=== PATIENT | female | born 1985 | race Caucasian/White ===

== ENCOUNTER → 2017-12-19 16:13 | Outpatient (CLI) | payer SELFPAY ==
[2017-12-19 15:41] VITALS: BP 114/70; BMI 23.7
[2017-12-19 17:03] LABS: Absolute Lymphocyte Count 1.09 X10^3/ul (0.83-4.51); Absolute Neutrophil Count 4.8 X10^3/uL (2.0-7.7); Basophil# 0.01 X10^3/uL; Basophil% 0.1 % (0-1); Eosinophil# 0.17 X10^3/uL; Eosinophils% 2.5 % (0-5); Hemoglobin 11.5 g/dl (12.0-15.0); Lymphocyte # 1.09 X10^3/ul (4.0); Mean Corp Hgb Conc 32.9 g/gl (32-36); Mean Corpuscular Hgb 30.5 pg (27.0-32.0); Mean Corpuscular Volume 92.8 fL (81-99); Mean Platelet Vol. 10.6 fl (6.2-12.0); Monocyte# 0.73 X10^3/uL; Monocyte% 10.7 % (0-10); Neutrophil # 4.76 X10^3/uL (2.7-7.7); Neutrophil % 70.1 % (47-70); Platelet Count 158 K/mm3 (150-450); RBC Distribution Width CV 12.8 % (11.6-14.6); RBC Distribution Width SD 41.9 fl (35.1-43.9); Red Blood Count 3.77 M/mm3 (4.2-5.4); White Blood Count 6.8 K/mm3 (4.4-11.0)
[2017-12-19 17:10] LABS: POSITIVE COUNT NO; POSITIVE DIFFERENTIAL NO; POSITIVE MORPHOLOGY NO
== END ==
PROVIDERS: Visit Provider Nurse Practitioner Women's Health
DX: Z34.90 Encounter for supervision of normal pregnancy, unspecified, unspecified trimester (principal)
CPT/HCPCS: 85025

== ENCOUNTER → 2018-01-30 17:44 | Outpatient (CLI) | payer SELFPAY ==
[2018-01-30 19:19] LABS: Group B Strep DNA By PCR Negative (Negative); Internal Control PASS; Probe Check PASS; Specimen Processing Control PASS
== END ==
PROVIDERS: Visit Provider Nurse Practitioner Women's Health
DX: Z34.90 Encounter for supervision of normal pregnancy, unspecified, unspecified trimester (principal)
CPT/HCPCS: 87081; 87653

== ENCOUNTER → 2018-03-02 14:46 | Outpatient (CLI) | payer SELFPAY ==
--- NOTE | 2018-03-02 15:08 | US_ITS ---
STUDY: SECOND AND THIRD TRIMESTER OBSTETRICAL ULTRASOUND - LIMITED REASON FOR EXAM: Female, 32 years old. growth. 40 weeks 5 days. LMP: 05/21/2017 PRIOR ULTRASOUND: 10/06/2017 TECHNIQUE: Transabdominal ultrasound evaluation was performed. FINDINGS: There is a single intrauterine fetus. The fetus is in a cephalic presentation. There is demonstrated cardiac activity with a heart rate of 139 bpm. There is a normal amniotic fluid volume. The largest amniotic fluid pocket measures 2.5 x 5.5 cm. The amniotic fluid index (RIVAS) is 8 cm. The placenta is posterior in location and is not low lying. There are Grade 2 placental changes. The cervix is not visualized. BIOMETRY: BPD: 10.3 cm HC: 35.6 cm: 41 weeks, 5 days AC: 37 cm: 41 weeks, 0 days FL: 8.5 cm Age by LMP: 40 weeks, 5 days. REBECCA by LMP: 02/25/2018. REBECCA by prior US: 02/18/2018. age by current US: 41 weeks, 3 days. REBECCA by current US: . Estimated weight: 4515 grams, +/- 659 grams. US/OB Limited With Biometrics IMPRESSION: 1. Single live intrauterine of 41 weeks, 3 day gestation with an REBECCA of 02/20/2018. 2. Posterior grade 2 placenta, not low-lying. 3. Cervix is obscured. 4. Amniotic fluid index 8 cm. 5. Estimated weight 4515 g. Electronically Signed: Radha Nguyen MD at 4:45 EDT , Service support ,
== END ==
PROVIDERS: Visit Provider Obstetrics & Gynecology
DX: Z34.90 Encounter for supervision of normal pregnancy, unspecified, unspecified trimester (principal)
CPT/HCPCS: 76816

== ENCOUNTER 2018-03-06 06:34 | Inpatient (IN) | payer SELFPAY ==
[2018-03-06] MEDS: Lactated Ringers 1,000 ML 50 ML IV (07:25)
[2018-03-06 07:29] VITALS: BMI 26.1
[2018-03-06] MEDS: Oxytocin 30 units/NS 500 ml 30 UNITS/500 ML IV.SOLN IV (07:43)
[2018-03-06 07:57] LABS: Hemoglobin 11.4 g/dl (12.0-15.0); Mean Corp Hgb Conc 33.5 g/gl (32-36); Mean Corpuscular Volume 92.4 fL (81-99); Mean Platelet Vol. 10.8 fl (6.2-12.0); Platelet Count 119 K/mm3 (150-450); RBC Distribution Width CV 13.1 % (11.6-14.6); Red Blood Count 3.68 M/mm3 (4.2-5.4); White Blood Count 5.5 K/mm3 (4.4-11.0)
[2018-03-06 07:58] LABS: Scan Indicated on CBC? Y/N NO
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
[2018-03-06] MEDS: Oxytocin 30 units/NS 500 ml 30 UNITS/500 ML IV.SOLN 334 UNITS IV (16:36)
[2018-03-06] MEDS: Morphine 4 MG/ML Syringe IV (16:56)
[2018-03-06] MEDS: Oxytocin 30 units/NS 500 ml 30 UNITS/500 ML IV.SOLN 167 UNITS IV (17:06)
[2018-03-06 20:57] VITALS: BP 129/78; PULSE 74; RESP 18; TEMP 37.1; O2SAT 96
[2018-03-07 00:47] VITALS: BP 114/66; PULSE 66; RESP 18; TEMP 37.1; O2SAT 99
[2018-03-07 04:35] VITALS: BP 106/62; PULSE 75; RESP 17; TEMP 36.6
--- NOTE | 2018-03-07 05:10 | PCM.OB.VAG ---
- Problem List (1) Post-term Status: Acute (2) Supervision of normal Status: Acute Qualifiers: Comment: PRR REBECCA [birth year] boy JARED Levi Hieu Vaginal Delivery Maternal Presentation: Medically Indicated Induction postdates IOL Method of Induction: Pitocin Amniotic Membrane Rupture Type: Artificial Amniotic Fluid Description: Clear Final REBECCA: 02/25/18 Gestational age: 41 Weeks and 2 Days Date of Procedure: 03/06/18 Pre-Operative Diagnosis: iol postdates Post-Operative Diagnosis: same Surgery/ Procedure Performed: Spontaneous Vaginal Delivery Type of Anesthesia: None Description of Procedure: Patient began pushing and delivered the head in the CATALINO presentation. The head was delivered atraumatically. The anterior and posterior shoulders delivered without complication followed by the rest of the infant and the infant was placed on the maternal abdomen. Delayed cord clamping was employed for approximately 60 seconds. Cord was clamped and cut and gentle traction was applied to the cord and the placenta delivered spontaneously immediately following it was noted to be intact with three-vessel cord. The perineum and vagina were inspected and a very small, hemostatic 1st degree laceration was noted and no repair needed. EBL was 400 cc. Patient and tolerated delivery well. Presentation: CATALINO Placental Delivery Description: Spontaneous Placenta Disposition: [facility] Cord Vessel Description: 3 Vessels Cord Entanglement: None Estimated Blood Loss: 400 Infant A gender: Male Episiotomy Description: None Laceration: Perineal Extension/lac, 1st degree Medications given after delivery: IV Pitocin Complications: None
--- NOTE | 2018-03-07 07:50 | PCM.PN.OB ---
Patient Problems: Active and Suspected Problems (Last Reviewed 03/02/18 @ 14:12 by Criss Mccullough) Post-term (Acute) Subjective: Doing well. Denies SOB, CP, NV. Normal lochia - Physical Exam General: Alert, Oriented x3 Abdomen: Soft, Non Tender, - - FF below U Vital Signs Temp Pulse Resp BP Pulse Ox 97.8 F 75 17 106/62 99 03/07/18 04:35 03/07/18 04:35 03/07/18 04:35 03/07/18 04:35 03/07/18 00:47 Oxygen Delivery Method Room Air Weight: 176 lb 12.972 oz Body Mass Index (BMI) 26.1 Laboratory Tests Past 24 Hrs 03/06/18 03/06/18 07:25 07:25 WBC 5.5 RBC 3.68 L Hgb 11.4 L Hct 34.0 L MCV 92.4 MCH 31.0 MCHC 33.5 RDW 13.1 RDW Differential 44.0 H Plt Count 119 L MPV 10.8 Blood Type O POSITIVE Antibody Screen NEGATIVE Medical Necessity - Tobacco Use Smoking Status: Never smoker Assessment/Plan Active and Suspected Problems (Last Reviewed 03/02/18 @ 14:12 by Criss Mccullough) Post-term (Acute) PPD #1 Doing well. Pain controlled. No concerns bowel, bladder. . Routine care
[2018-03-07 08:05] VITALS: BP 118/68; PULSE 76; RESP 20; TEMP 37
[2018-03-07 13:45] VITALS: BP 113/70; PULSE 90; RESP 18; TEMP 36.5
--- NOTE | 2018-03-07 14:39 | NURSING ---
1300 While rounding Mom states that nursing is going very well. Mom encouraged to call if I can be of assistance with latching or if she would like me to observe latch. Pat MAGDALENO
[2018-03-07 16:05] VITALS: BP 103/61; PULSE 90; RESP 18; TEMP 37.3
[2018-03-07 20:23] VITALS: BP 106/63; PULSE 87; RESP 18; TEMP 36.9
[2018-03-08 01:30] VITALS: BP 117/72; PULSE 79; RESP 16; TEMP 36.9
--- NOTE | 2018-03-08 04:31 | DCINST_ITS ---
Discharge Diet: No Restrictions Discharge Activity: Return to Normal Activity, May not drive while taking narcotic pain medications., May Shower May resume sexual activity in: 4-6 weeks Call your doctor if your incision/area has: Continuous Slow Oozing, Sudden Increased Bleeding, Increased Pain/ Swelling, Increased Redness, Foul Smelling Discharge Additional Instructions: If you experience any of the following, contact your healthcare provider. * Bleeding that soaks a pad every hour for 2 hours * Fever 100.4 or higher * Unrelieved incision or abdominal pain * Swelling, redness, discharge or bleeding from your incision or episiotomy site * Your incision begins to separate * Problems urinating (including inability to urinate or burning while urinating) . * Visual changes * Severe headache * Flu-like symptoms * Pain or redness in one of both of your breasts * Pain, warmth, tenderness or swelling in your legs, especially the calf area * Frequent nausea and vomiting * Symptoms of depression or anxiety If you experience any of the following, call 911 or go to the nearest Emergency Room. * Chest pain * Problems breathing * Seizure activity * Partial or complete paralysis of a body part, slurred speech, weakness or drooping of the face, or a sudden inability to walk or hold your balance Allergies/Adverse Reactions: Allergies No Known Allergies Allergy (Verified 03/06/18 07:30) Medications to take at Discharge cholecalciferol (vitamin D3) 1,000 unit capsule 1,000 unit PO ONCE 10/31/17 ferrous sulfate 324 mg (65 mg iron) tablet,delayed release 324 mg PO QDAY tab 10/31/17 vitamin,calcium,hbdjlnld-dwwc-zbbam acid tablet 1 tab PO QDAY 10/31/17 Naproxen [Naprosyn] 250 - 500 mg PO Q8H PRN PRN #30 tab 03/08/18 The following prescriptions were given: Naproxen [Naprosyn] 250 - 500 mg PO Q8H PRN PRN #30 tab PRN Reason: MILD PAIN Please Follow Up With: Lindsey Berry MD - [phone] When: Call to make an appointment with your doctor in 6 weeks. If you had elevated Blood pressure or 4th degree laceration you will need to be seen in 2 weeks. Primary Care Physician: Care Physician,No Primary [Primary Care Provider] -
--- NOTE | 2018-03-08 04:31 | PCM.DCVAG ---
Discharge Diet: No Restrictions Discharge Activity: Return to Normal Activity, May not drive while taking narcotic pain medications., May Shower May resume sexual activity in: 4-6 weeks Call your doctor if your incision/area has: Continuous Slow Oozing, Sudden Increased Bleeding, Increased Pain/ Swelling, Increased Redness, Foul Smelling Discharge Additional Instructions: If you experience any of the following, contact your healthcare provider. Bleeding that soaks a pad every hour for 2 hours Fever 100.4 or higher Unrelieved incision or abdominal pain Swelling, redness, discharge or bleeding from your incision or episiotomy site Your incision begins to separate Problems urinating (including inability to urinate or burning while urinating). Visual changes Severe headache Flu-like symptoms Pain or redness in one of both of your breasts Pain, warmth, tenderness or swelling in your legs, especially the calf area Frequent nausea and vomiting Symptoms of depression or anxiety If you experience any of the following, call 911 or go to the nearest Emergency Room. Chest pain Problems breathing Seizure activity Partial or complete paralysis of a body part, slurred speech, weakness or drooping of the face, or a sudden inability to walk or hold your balance Allergies/Adverse Reactions: Allergies No Known Allergies Allergy (Verified 03/06/18 07:30) Medications to take at Discharge cholecalciferol (vitamin D3) 1,000 unit capsule 1,000 unit PO ONCE 10/31/17 ferrous sulfate 324 mg (65 mg iron) tablet,delayed release 324 mg PO QDAY tab 10/31/17 vitamin,calcium,izelapyl-zeew-csjek acid tablet 1 tab PO QDAY 10/31/17 Naproxen [Naprosyn] 250 - 500 mg PO Q8H PRN PRN #30 tab 03/08/18 The following prescriptions were given: Naproxen [Naprosyn] 250 - 500 mg PO Q8H PRN PRN #30 tab PRN Reason: MILD PAIN Please Follow Up With: Lindsey Berry MD - [phone] When: Call to make an appointment with your doctor in 6 weeks. If you had elevated Blood pressure or 4th degree laceration you will need to be seen in 2 weeks. Primary Care Physician: Care Physician,No Primary [Primary Care Provider] -
[2018-03-08 08:20] VITALS: BP 113/58; PULSE 80; RESP 20; TEMP 36.6
--- NOTE | 2018-03-08 09:52 | PN.OBGYN_ITS ---
Patient Problems: Active and Suspected Problems (Last Reviewed 03/02/18 @ 14:12 by Criss Mccullough) Post-term (Acute) Subjective: doing well no complaints - Physical Exam General: Alert, Oriented x3 Vital Signs Temp Pulse Resp BP Pulse Ox 97.9 F 80 20 H 113/58 L 99 03/08/18 08:20 03/08/18 08:20 03/08/18 08:20 03/08/18 08:20 03/07/18 00:47 Oxygen Delivery Method Room Air Weight: 176 lb 12.972 oz Body Mass Index (BMI) 26.1 Medical Necessity - Tobacco Use Smoking Status: Never smoker Assessment/Plan Active and Suspected Problems (Last Reviewed 03/02/18 @ 14:12 by Criss Mccullough) Post-term (Acute) s/p routine care [facility]
== END 2018-03-08 12:30 | disposition home or self-care (01) | DRG 775 ==
PROVIDERS: Admitting Provider Obstetrics & Gynecology; Visit Provider Obstetrics & Gynecology
DX: O48.0 Post-term pregnancy (principal); Z37.0 Single live birth; Z3A.41 41 weeks gestation of pregnancy; O70.0 First degree perineal laceration during delivery
CPT/HCPCS: 59025; 59050; 85027; 86850; 86900; 99218; J7120; G0378

== ENCOUNTER 2020-08-31 05:47 | Day surgery (SDC) | payer OTHER, SELFPAY ==
[2020-08-31] VITALS (29 sets, daily range): BP systolic 86–124; BP diastolic 43–79; PULSE 76–115; RESP 16–26; TEMP 36.4–37.3; O2SAT 94–100; BMI 23.7; BMI 21.2
--- NOTE | 2020-08-31 | POC_PTH ---
PATIENT: JOANNA DANIELS [place] [facility] [place][id number] AGE/SX: 35/F ROOM: RE08/31/[address]: Dr. Janice Rossi MD : [id number] BED: DIS: 08/31/2020 SPEC #: [id number] RECD: 08/31/20 13:28 STATUS: JALIL REGabriela #: [id number] ADAM: 08/31/20 00:[address]: Janice Rossi DEPT: SURGICAL PATHOLOGY RECD BY: Darien Nagy ENTERED: 08/31/20 13:28 SP TYPE: PROD CONC OTHR DR: Dr. Lindsey Berry MD No Primary Care Phys Tissues: Product of conception, NOS Procedures: Surgery Specimen Level IV HEADER OPERATION: Suction D & C PRE-OP DIAGNOSIS: Missed TISSUE SUBMITTED: Products of conception MICROSCOPIC DIAGNOSIS Products of conception: [place], gestational endometrium and immature chorionic villi (products of conception). SJ:aniceto 09/01/20 MICROSCOPIC DESCRIPTION Slides are reviewed. GROSS DESCRIPTION Received in fixative is one container labeled with the patient's name and designated products of conception. The specimen consists of multiple irregular fragments of pink-red soft tissue that in aggregate measure 8 x 7 x 2 cm. tissue is not identified. Central Supply Technician Supervisor tissue is submitted in three cassettes. / JENNA:aniceto 08/31/20 TC:5 CPT: 80946
--- NOTE | 2020-08-31 06:02 | EKG12_ITS ---
Test Reason : DYSRHYTHMIA Blood Pressure : / mmHG Vent. Rate : 093 BPM Atrial Rate : 093 BPM P-R Int : 134 ms QRS Dur : 084 ms QT Int : 380 ms P-R-T Axes : 069 -27 009 degrees QTc Int : 472 ms Normal sinus rhythm Leftward axis Low voltage QRS (Limb Leads) Confirmed by JOSE ELIAS FRY, JAUN ([id number]), assistant film editor FELIPE KANG ([id number]) on 09/01/2020 8:22:13 AM Referred By: MICHELLE Confirmed By:JAUN MOCTEZUMA MD
--- NOTE | 2020-08-31 06:02 | ED.VIS.GEN ---
History of Present Illness Chief Complaint: Vag Bld, Preg Informant: Patient Narrative: States she is approximately 12 weeks by dates. She started having mild vaginal spotting with wiping a couple days ago. She had some intermittent spotting a week prior to that that was minor. 8 PM last night she started having significant vaginal bleeding with clots. She has not seen WEATHERSEAL TECHNICIAN yet. Unsure of her blood type. She is unsure if she lost her . This is her fourth . She reports never losing a in the past. Denies any blood thinners. Denies any abdominal pain. She stated she had at least 3 episodes of syncope tonight without any significant injury. This is never happened in the past. No history of preeclampsia. She does take iron for chronic anemia. Past Medical History - Allergies and Home Meds Allergies/Adverse Reactions: Allergies No Known Allergies Allergy (Verified 08/31/20 05:54) Primary Care Physician: Care Physician,No Primary [Primary Care Provider] - Prior records reviewed: Yes Past Medical History: - - Anemia Surgical History: - - Reviewed Lives: With Family Smoking Status: Never smoker Alcohol: None Drugs: None Review of Systems General: Denies: Chills, Fever, Sweats Eyes: Denies: Visual changes - bilaterally, Diplopia ENT: Denies: Rhinorrhea, Sore throat Cardiovascular: Denies: Chest pain, Palpitations Respiratory: Denies: Dyspnea, Cough, Dyspnea on exertion Gastrointestinal: Denies: Abdominal pain, Nausea, Vomiting, Diarrhea, Melena, Hematochezia Genitourinary: Reports: - - See HPI. Denies: Dysuria, Hematuria, Frequency Musculoskeletal: Denies: Back pain, Extremity Pain Skin: Denies: Rash, Wounds Neurological: Reports: Weakness. Denies: Headache, Numbness Physical Exam Vital Signs/Narrative: Vital Signs Temp Pulse Resp BP Pulse Ox 08/31/20 05:48 97.5 F L 115 H 20 H 124/79 H 100 General: Well nourished, Well developed, No Acute Distress Head: Normocephalic, Atraumatic Eyes: Perrl, EOMI ENT: Moist mucous membranes, No rhinorrhea Neck: Supple, Nontender Cardiovascular: Regular rhythm, No murmurs, Tachycardia Respiratory: No distress, CTA bilaterally, Chest nontender Abdomen: Soft, Nontender, Nondistended, Normal bowel sounds : - - Pelvic exam shows brisk bleeding from the cervical os which appears dilated 1 cm. No products of conception seen. Multiple clots. This was evacuated with suction approximately 90 mL of bright red blood. Back: Nontender, Normal Inspection Extremities: Nontender, No edema Skin: No rash, - - Patient appears pale which she stated is chronic for her Neurological: Alert, Oriented x3, Cranial nerves II-XII grossly intact, Normal Strength, Normal Sensation Psychological: Normal affect, Normal Mood Diagnostic/Tx/Re-eval - Medical Decision Making Patient given IV fluids. Lab work obtained. Lab work shows a hemoglobin of 10.5. Coags normal. Urinalysis shows no evidence of infection. EKG shows sinus rhythm at a rate of 93 with no acute ischemia or arrhythmia. Quant hCG greater than 14,000. Blood type pending. Ultrasound will be obtained. Will be signed out to am oncoming physician Dr. Dominguez. There are marking at the knees on page. I suspect the patient is having an impending spontaneous ED Disposition - Plan for ED Patient: Diagnosis: Vaginal bleeding during , Syncope and collapse
[2020-08-31] MEDS: 0.9% Normal Saline 1,000 ML 1000 ML IV (06:08)
[2020-08-31 06:10] LABS: Absolute Lymphocyte Count 1.04 X10^3/uL (0.83-4.51); Absolute Neutrophil Count 8.1 X10^3/uL (2.0-7.7); Basophil# 0.01 X10^3/uL; Basophil% 0.1 % (0-1); Eosinophil# 0.02 X10^3/uL; Eosinophils% 0.2 % (0-5); Hematocrit 32.7 % (37-47); Hemoglobin 10.5 g/dL (12.0-15.0); Lymphocyte # 1.04 X10^3/ul (4.0); Lymphocyte % 10.5 % (19-41); Mean Corp Hgb Conc 32.1 g/dL (32-36); Mean Corpuscular Hgb 29.8 pg (27.0-32.0); Mean Corpuscular Volume 92.9 fL (81-99); Mean Platelet Vol. 10.6 fl (6.2-12.0); Monocyte# 0.65 X10^3/uL; Monocyte% 6.6 % (0-10); NRBC Flagged by Analyzer 0 % (0-5); Neutrophil # 8.14 X10^3/uL (2.7-7.7); Neutrophil % 82.2 % (47-70); Platelet Count 166 K/mm3 (150-450); RBC Distribution Width CV 12.4 % (11.6-14.6); RBC Distribution Width SD 42.5 fl (35.1-43.9); Red Blood Count 3.52 M/mm3 (4.2-5.4); White Blood Count 9.9 K/mm3 (4.4-11.0)
[2020-08-31 06:17] LABS: International Normalized Ratio 1.1; Partial Thromboplast Time 22.1 Seconds (24.1-36.2); Prothrombin Time (Protime)PT. 13.7 SECONDS (11.7-14.9)
[2020-08-31 06:26] LABS: Bedside Glucose 120 mg/dL (70-110)
--- NOTE | 2020-08-31 06:33 | US_ITS ---
STUDY: FIRST TRIMESTER OBSTETRICAL ULTRASOUND REASON FOR EXAM: Female, 35 years old HEAVY BLEEDING AND PASSING CLOTS WITH -- HCG- [id number] -- LMP- 06/05/20 LMP: 06/05/2020 TECHNIQUE: Transvaginal TECHNICAL QUALITY: Adequate. PRIOR ULTRASOUND: None. FINDINGS: There is no demonstrated intrauterine gestational sac. The uterus measures 11.9 x 6.7 cm. Endometrial complex measures 17 mm in the fundus. Hypoechoic collection in the lower uterine segment canal measures 2.9 x 2.8 x 1.9 cm. There is no demonstrated uterine fibroid. The cervix is closed. The right ovary measures 3.7 x 3.6 x 2.1 cm. There is no right ovarian cyst. There is no visualized right adnexal mass or complex lesion. The left ovary measures 2.6 x 2.7 x 1.8 cm. There is no left ovarian cyst. There is no visualized left adnexal mass or complex lesion. There is minimal fluid in the cul de sac. US/Transvaginal w/Preg US IMPRESSION: 1. Endometrial thickening with 2.9 cm lower uterine segment hypoechoic collection suggest blood products and/or failure. Continued sonographic and serologic follow-up recommended. 2. No adnexal masses. 3. Trace pelvic free fluid. Electronically Signed: Marco Young MD ([place]) at 8:03 EDT , Service support ,
[2020-08-31 06:53] LABS: hCG Titer Quant., Serum 14576 mIU/mL (1-3)
[2020-08-31] MEDS: Ondansetron 4 MG/2 ML Vial IV (07:10)
[2020-08-31] MEDS: 0.9% Normal Saline 1,000 ML 999 ML IV (09:12)
--- NOTE | 2020-08-31 09:14 | ED.RN ---
EXTENSION SET AND STOPCOCK ON PRIMARY LINE. PT AWAITING OR AT APPROXIMATELY 1045. DENIES NEEDS AT THIS TIME.
--- NOTE | 2020-08-31 09:21 | EKG12_ITS ---
Test Reason : Blood Pressure : / mmHG Vent. Rate : 083 BPM Atrial Rate : 083 BPM P-R Int : 142 ms QRS Dur : 084 ms QT Int : 416 ms P-R-T Axes : 067 -22 030 degrees QTc Int : 488 ms Normal sinus rhythm Leftward axis Low voltage QRS (Limb Leads) Prolonged QT Abnormal ECG Confirmed by JOSE ELIAS FRY, JAUN ([id number]), digital editor FELIPE KANG ([id number]) on 09/01/2020 8:22:41 AM Referred By: SAUL Confirmed By:JAUN MOCTEZUMA MD
[2020-08-31] MEDS: DiphenhydrAMINE 50 MG/ML Syringe 12.5 MG IV (09:41)
--- NOTE | 2020-08-31 09:43 | HP.PCM_ITS ---
History Date of Admission: 03/06/18 Gestational age: 12 weeks History of this : This is a 35 year-old, G4, P3 presenting to ER with with vaginal bleeding at approximately 12 weeks gestation. Started bleeding heavily last night. Has lost consciousness multiple times since bleeding began. No longer feeling lightheaded. Denies nausea and vomiting. Does report passing large clots and bleeding heavily. Allergies No Known Allergies Allergy (Verified 08/31/20 05:54) Home Medications: Home Medications cholecalciferol (vitamin D3) 25 mcg (1,000 unit) capsule 1,000 unit PO ONCE 10/31/17 ferrous sulfate 324 mg (65 mg iron) tablet,delayed release 324 mg PO QDAY tab 10/31/17 prenat.vits,miriam,[id number]-jxsis 1 tab PO QDAY 10/31/17 Smoking Status: Never smoker Alcohol: None History Past Pregnancies: 3 Elective abortions Hx Para 3 Spontaneous abortions Hx # Term Pregnancies Ectopic pregnancies Hx # Pregnancies Multiple births # of living children 3 Past Pregnancies Del. Date Name GA/Weeks Outcome Route Bth Weight Gen Labor Lgth Anesthesia Del Locatn Provider FOB 07/10/12 Noel 42 live - full term 9 lbs 14 ounces Male [place] 06/04/15 Bhargav 40 live - full term 8lbs 8oz Male [facility] 03/06/18 [facility] 41 live - full term 9 lb 8 oz Male other [facility] Review of Systems Constitutional: Denies: Chills, Fever HEENT: Denies: Head Aches, Sinus Congestion, Sinus Drainage Cardiovascular: Reports: Heaviness, Light Headedness. Denies: Chest Pain, Palpitations Respiratory: Denies: Cough, Shortness of breath at rest, Sputum production Gastrointestinal: Reports: Abdominal Pain. Denies: Nausea, Vomiting Genitourinary: Denies: Dysuria Gynecological: Reports: Vaginal bleeding. Denies: Vaginal discharge, Vaginal itching Musculoskeletal: Denies: Joint Pain, Joint Tenderness Skin: Denies: Rash, Wounds Neurological: Denies: Numbness, Tingling, Focal weakness Psychiatric: Denies: Anxiety, Depression Physical Exam Vitals: Vital Signs Temp Pulse Resp BP Pulse Ox 99.1 F 80 17 101/62 100 08/31/20 09:37 08/31/20 09:37 08/31/20 09:37 08/31/20 09:37 08/31/20 09:37 General: Alert, Oriented x3, Cooperative, No apparent distress, Well developed, Well nourished HEENT: Atraumatic, PERRLA, EOMI, Normocephalic, Lymphadenopathy Cardiovascular: Regular rate Lungs: Normal air movement Abdomen: Bowel Sounds Present, Soft, Non Tender, Non-Distended, Gravid Neurological: Deep Tendon Reflexes 2+/4 and Symmetrical, Neuro grossly intact PORTFOLIO ANALYST: Normal external genitalia - pad partially soaked Assessment/Plan All Active Problems (Last Reviewed 04/24/18 @ 15:56 by Criss Mccullough) Post-term (Acute) Vaginal bleeding during (Acute) Syncope and collapse (Acute) Supervision of normal (Acute) This is a 35 year-old, G3, P3 presenting with heavy vaginal bleeding found to have evidence of incomplete ab 1. Incomplete - Hb 10 on presentation - Patient pale appearing - initially tachycardic in ER, but pulse now in 90s - Bleeding heavily initially, but bleeding now constant slow trickle - US shows evidence of clots in the uterus with no evidence of IUP - Given patient pale and bleeding somewhat heavily, recommendation made to proceed with suction dilation and curettage. Risks, benefits, indications, and alternatives to the procedure were discussed with the patient and she agreed to proceed. OR notified. Multi Select Codes - Visit Charges Office Visit/Consults: 41712 OV L4 Est - patient evaluated in ER and taken to surgery same day
--- NOTE | 2020-08-31 09:43 | PCM.HP.OB ---
History Date of Admission: 03/06/18 Gestational age: 12 weeks History of this : This is a 35 year-old, G4, P3 presenting to ER with with vaginal bleeding at approximately 12 weeks gestation. Started bleeding heavily last night. Has lost consciousness multiple times since bleeding began. No longer feeling lightheaded. Denies nausea and vomiting. Does report passing large clots and bleeding heavily. Allergies No Known Allergies Allergy (Verified 08/31/20 05:54) Home Medications: Home Medications cholecalciferol (vitamin D3) 25 mcg (1,000 unit) capsule 1,000 unit PO ONCE 10/31/17 ferrous sulfate 324 mg (65 mg iron) tablet,delayed release 324 mg PO QDAY tab 10/31/17 prenat.vits,miriam,uqx-fjoz-iqfpz 1 tab PO QDAY 10/31/17 Smoking Status: Never smoker Alcohol: None History Past Pregnancies: Past Pregnancies Delivery Date Name GA/ Weeks Outcome Route Wt Infant Sex Labor Length Anesthesia Delivery Location Provider FOB Physical Exam Vitals: Vital Signs Temp Pulse Resp BP Pulse Ox 99.1 F 80 17 101/62 100 08/31/20 09:37 08/31/20 09:37 08/31/20 09:37 08/31/20 09:37 08/31/20 09:37 Assessment/Plan All Active Problems (Last Reviewed 04/24/18 @ 15:56 by Criss Mccullough) Post-term (Acute) Vaginal bleeding during (Acute) Syncope and collapse (Acute) Supervision of normal (Acute) This is a 35 year-old, G [], P [], at weeks gestational age.
[2020-08-31 10:16] LABS: Hematocrit 21.4 % (37-47); Hemoglobin 7.1 g/dL (12.0-15.0)
--- NOTE | 2020-08-31 11:25 | DCINST_ITS ---
Discharge Diet: No Restrictions Discharge Activity: Return to Normal Activity, May Shower, May Take a Tub Bath - in 2 weeks. May resume sexual activity in: 1-2 weeks Call your doctor if your incision/area has: Foul Smelling Discharge Call your doctor if you observe: Fever of 101 or Higher, Numbness or Tingling, Inability to urinate, Using more than one pad per hour, Shortness of breath, Dizziness, Fainting spells, Chest pain Allergies/Adverse Reactions: Allergies No Known Allergies Allergy (Verified 08/31/20 05:54) Medications to take at Discharge cholecalciferol (vitamin D3) 25 mcg (1,000 unit) capsule 1,000 unit PO ONCE 10/31/17 ferrous sulfate 324 mg (65 mg iron) tablet,delayed release 324 mg PO QDAY tab 10/31/17 prenat.vits,miriam,[id number] 1 tab PO QDAY 10/31/17 Primary Care Physician: Care Physician,No Primary [Primary Care Provider] - Test Results: Test results from this visit will be discussed in further detail at your follow- up appointment, if applicable.
--- NOTE | 2020-08-31 11:26 | OP.PCM_ITS ---
Problem List (1) Incomplete Status: Acute Report of Operation Date of Procedure: 08/31/20 Pre-Operative Diagnosis: Incomplete Post-Operative Diagnosis: Same Surgery/Procedure Performed:: Suction dilation and curettage Description of Surgical Findings:: Normal-appearing cervix. Retained products of conception. Approximately 200 cc of clot in the vagina preoperatively. Type of Anesthesia:: MAC Specimen's removed: Products of conception Estimated Blood Loss (mL): 50 ml Description of Procedure: The patient was taken to the operating room where general anesthesia was obtained without difficulty. She was prepped and draped in the dorsal lithotomy position with yellowfin stirrups. Weighted speculum was placed in the posterior aspect of the vagina and the anterior lip of the cervix was grasped with a ring forcep. The cervix was noted to be dilated to approximately 1 cm preoperatively. A #9 curved suction curette was introduced through the cervix without difficulty. The suction was activated and the products of conception were removed in an outward rotating movement. This was repeated until no products were noted passing through the suction tube. A gentle sharp curettage was then performed. One final pass was made with the suction and no products we re noted. Bleeding at this point was noted to be minimal. All instruments were removed from the vagina. Counts were noted to be correct x2. Patient was taken to the recovery room in stable condition. - Complications None apparent - Admit VTE Documentation VTE Present on Admission: No VTE Mechan Device Prophylaxis: SCD's VTE Pharm Prophylaxis ordered?: No Multi Select Codes - Urinary/Genital Urinary/Genital CPT Codes: 35818 Surg Trtmt missed Ab 1TM
[2020-08-31 12:22] LABS: Absolute Lymphocyte Count 0.64 X10^3/uL (0.83-4.51); Absolute Neutrophil Count 6.8 X10^3/uL (2.0-7.7); Basophil# 0.01 X10^3/uL; Basophil% 0.1 % (0-1); Eosinophil# 0.17 X10^3/uL; Eosinophils% 2.1 % (0-5); Hematocrit 20.9 % (37-47); Hemoglobin 6.7 g/dL (12.0-15.0); Lymphocyte # 0.64 X10^3/ul (4.0); Mean Corp Hgb Conc 32.1 g/dL (32-36); Mean Corpuscular Hgb 29.8 pg (27.0-32.0); Mean Corpuscular Volume 92.9 fL (81-99); Mean Platelet Vol. 10.7 fl (6.2-12.0); Monocyte# 0.38 X10^3/uL; Monocyte% 4.8 % (0-10); NRBC Flagged by Analyzer 0 % (0-5); Neutrophil # 6.76 X10^3/uL (2.7-7.7); Neutrophil % 84.7 % (47-70); POSITIVE MORPHOLOGY YES; Platelet Count 124 K/mm3 (150-450); RBC Distribution Width CV 12.3 % (11.6-14.6); RBC Distribution Width SD 41.7 fl (35.1-43.9); Red Blood Count 2.25 M/mm3 (4.2-5.4)
[2020-08-31 12:28] LABS: Differential Indicated SCAN CRITERIA MET
[2020-08-31 13:23] LABS: Platelet Estimate ADEQUATE (ADEQ); Red Cell Morphology NORM C+C NORMAL (NORM C&C)
== END 2020-08-31 15:44 | disposition home or self-care (01) ==
LOC: ED 08:53 → SDC 09:21 → ACINP 09:22
PROVIDERS: Anesthesiology; Emergency Provider Emergency Medicine; Visit Provider Obstetrics & Gynecology
PROC: (CPT 59812; principal; 2020-08-31 10:30)
DX: O03.4 Incomplete spontaneous abortion without complication (principal); D64.9 Anemia, unspecified
CPT/HCPCS: 01965; 59812; 76817; 82962; 84702; 85014; 85018; 85025; 85610; 85730; 86850; 86900; 86901; 86920; 88305; 93005; 99285; J7030; J7040; J7120; P9016; A4216; J2405

== ENCOUNTER → 2021-08-19 10:03 | Outpatient (CLI) | payer MEDICAID, SELFPAY ==
[2021-08-19 10:27] LABS: Absolute Lymphocyte Count 0.91 X10^3/uL (0.83-4.51); Absolute Neutrophil Count 4.1 X10^3/uL (2.0-7.7); Eosinophil# 0.03 X10^3/uL; Eosinophils% 0.5 % (0-5); Hematocrit 37.8 % (37-47); Hemoglobin 12.4 g/dL (12.0-15.0); Lymphocyte # 0.91 X10^3/ul (0.83-4.51); Mean Corp Hgb Conc 32.8 g/dL (32-36); Mean Corpuscular Hgb 29.9 pg (27.0-32.0); Mean Corpuscular Volume 91.1 fL (81-99); Mean Platelet Vol. 11.3 fl (6.2-12.0); Monocyte# 0.62 X10^3/uL; Monocyte% 10.9 % (0-10); NRBC Flagged by Analyzer 0 % (0-5); Neutrophil # 4.12 X10^3/uL (2.7-7.7); Neutrophil % 72.2 % (47-70); Platelet Count 155 K/mm3 (150-450); RBC Distribution Width CV 12.6 % (11.6-14.6); RBC Distribution Width SD 41.8 fl (35.1-43.9); Red Blood Count 4.15 M/mm3 (4.2-5.4); White Blood Count 5.7 K/mm3 (4.4-11.0)
[2021-08-19 11:35] LABS: HIV - WCH Non-Reactive (Nonreactive); Hepatitis B Surface Antigen Non-Reactive (Nonreactive); Hepatitis C Antibody Non-Reactive (Nonreactive); Rubella IgG Reactive (Nonreactive); Syphilis Antibodies Non-reactive
[2021-08-19 14:10] LABS: Amphetamine Urine VISTA NEGATIVE (<1000 ng/mL); Barbiturate Urine VISTA NEGATIVE (< 200 ng/mL); Benzodiazepine Urine VISTA NEGATIVE (< 200 ng/mL); Cocaine Urine VISTA NEGATIVE (< 300 ng/mL); Ecstacy Urine VISTA NEGATIVE (< 500 ng/mL); Methadone Urine VISTA NEGATIVE (< 300 ng/mL); PCP Urine VISTA NEGATIVE (< 25 ng/mL); THC Urine VISTA NEGATIVE (< 50 ng/mL); Vista UDS pH Range 6
[2021-08-23 22:06] LABS: Chlamydia By Nucleic Acid AMP Negative (Negative)
[2021-08-24 07:57] LABS: Gonococcus By Nucleic Acid AMP Negative (Negative)
== END ==
PROVIDERS: Referring Provider Obstetrics & Gynecology; Visit Provider Obstetrics & Gynecology
DX: Z34.90 Encounter for supervision of normal pregnancy, unspecified, unspecified trimester (principal)
CPT/HCPCS: 36415; 80307; 85025; 86703; 86762; 86780; 86803; 86850; 86900; 86901; 87086; 87340; 87491; 87591

== ENCOUNTER 2021-11-17 13:36 | Outpatient (CLI) | payer MEDICAID, SELFPAY ==
--- NOTE | 2021-11-17 13:52 | US_ITS ---
STUDY: SECOND AND THIRD TRIMESTER OBSTETRICAL ULTRASOUND REASON FOR EXAM: Female, 36 years old well being LMP: 06/11/2021. TECHNIQUE: Transabdominal and Transvaginal TECHNICAL QUALITY: Adequate. PRIOR ULTRASOUND: None. FINDINGS: There is a single intrauterine fetus. The fetus is in a breech presentation. There is demonstrated cardiac activity with a heart rate of 133 bpm. There is a normal amniotic fluid volume. The largest amniotic fluid pocket measures 6.2 cm x 8.7 cm. The amniotic fluid index (RIVAS) is within normal limits. The placenta is posterior in location and is not low lying. There are Grade 0 placental changes. The cervix measures 5.6 cm in length. The adnexal regions are not visualized. BIOMETRY: BPD: 5.25 cm: 21 weeks, 6 days HC: 20.57 cm: 22 weeks, 4 days AC: 18.56 cm: 23 weeks, 2 days FL: 3.88 cm: 22 weeks, 3 days CI: 73.1% FL/BPD: 73.9% FL/HC: FL/AC: 20.9% HC/AC: 1.1 age by current US: 22 weeks, 2 days. REBECCA by current US: 03/21/2022. Estimated weight: 542 grams, +/- 81 grams, 50 %. Age by LMP: 22 weeks, 5 days. REBECCA by LMP: 03/18/2022. ANATOMY: Gender: Male Cranium: Normal lateral ventricles. Normal choroid plexus. Normal cerebellum. Normal cisterna magna. Normal face, nose and lips. Chest: Normal 4-chamber heart. Abdomen/Pelvis: Normal diaphragm. Normal stomach. Normal abdominal wall. Normal cord insertion. Normal 3 vessel cord. Normal kidneys. Normal bladder. Spine: Normal cervical spine. Normal thoracic spine. Normal lumbar spine. Normal sacrum. Extremities: Normal bilateral upper extremities. Normal bilateral lower extremities. IMPRESSION: Single live intrauterine gestation with a mean gestational age of 22 weeks and 2 days. Electronically Signed: Jean-Claude Dixon MD at 9:11 EST , STUDY: FIRST TRIMESTER OBSTETRICAL ULTRASOUND REASON FOR EXAM: Female, 36 years old. Cervical length measurement. LMP: 06/11/2021 TECHNIQUE: Transvaginal TECHNICAL QUALITY: Adequate. PRIOR ULTRASOUND: None. FINDINGS: The cervical length measures 5.6 cm. US/Transvaginal w/Preg US IMPRESSION: Cervical length measures 5.6 cm. Electronically Signed: Jean-Claude Dixon MD at 9:15 EST ,
--- NOTE | 2021-11-17 13:52 | US_ITS ---
STUDY: SECOND AND THIRD TRIMESTER OBSTETRICAL ULTRASOUND REASON FOR EXAM: Female, 36 years old well being LMP: 06/11/2021. TECHNIQUE: Transabdominal and Transvaginal TECHNICAL QUALITY: Adequate. PRIOR ULTRASOUND: None. FINDINGS: There is a single intrauterine fetus. The fetus is in a breech presentation. There is demonstrated cardiac activity with a heart rate of 133 bpm. There is a normal amniotic fluid volume. The largest amniotic fluid pocket measures 6.2 cm x 8.7 cm. The amniotic fluid index (RIVAS) is within normal limits. The placenta is posterior in location and is not low lying. There are Grade 0 placental changes. The cervix measures 5.6 cm in length. The adnexal regions are not visualized. BIOMETRY: BPD: 5.25 cm: 21 weeks, 6 days HC: 20.57 cm: 22 weeks, 4 days AC: 18.56 cm: 23 weeks, 2 days FL: 3.88 cm: 22 weeks, 3 days CI: 73.1% FL/BPD: 73.9% FL/HC: FL/AC: 20.9% HC/AC: 1.1 age by current US: 22 weeks, 2 days. REBECCA by current US: 03/21/2022. Estimated weight: 542 grams, +/- 81 grams, 50 %. Age by LMP: 22 weeks, 5 days. REBECCA by LMP: 03/18/2022. ANATOMY: Gender: Male Cranium: Normal lateral ventricles. Normal choroid plexus. Normal cerebellum. Normal cisterna magna. Normal face, nose and lips. Chest: Normal 4-chamber heart. Abdomen/Pelvis: Normal diaphragm. Normal stomach. Normal abdominal wall. Normal cord insertion. Normal 3 vessel cord. Normal kidneys. Normal bladder. Spine: Normal cervical spine. Normal thoracic spine. Normal lumbar spine. Normal sacrum. Extremities: Normal bilateral upper extremities. Normal bilateral lower extremities. IMPRESSION: Single live intrauterine gestation with a mean gestational age of 22 weeks and 2 days. Electronically Signed: Jean-Claude Dixon MD at 9:11 EST , STUDY: FIRST TRIMESTER OBSTETRICAL ULTRASOUND REASON FOR EXAM: Female, 36 years old. Cervical length measurement. LMP: 06/11/2021 TECHNIQUE: Transvaginal TECHNICAL QUALITY: Adequate. PRIOR ULTRASOUND: None. FINDINGS: The cervical length measures 5.6 cm. US/OB Anatomy Scan IMPRESSION: Cervical length measures 5.6 cm. Electronically Signed: Jean-Claude Dixon MD at 9:15 EST ,
== END 2021-11-17 23:59 | disposition short-term general hospital (02) ==
LOC: US 13:37
PROVIDERS: Referring Provider Obstetrics & Gynecology; Visit Provider Obstetrics & Gynecology
DX: Z34.80 Encounter for supervision of other normal pregnancy, unspecified trimester (principal)
CPT/HCPCS: 76805; 76817

== ENCOUNTER 2021-12-24 10:20 | Outpatient (CLI) | payer MEDICAID, SELFPAY ==
[2021-12-24 10:40] LABS: Absolute Lymphocyte Count 0.77 X10^3/uL (0.83-4.51); Absolute Neutrophil Count 4.1 X10^3/uL (2.0-7.7); Basophil# 0.01 X10^3/uL; Basophil% 0.2 % (0-1); Eosinophil# 0.08 X10^3/uL; Eosinophils% 1.5 % (0-5); Hematocrit 32.5 % (37-47); Hemoglobin 11.1 g/dL (12.0-15.0); Lymphocyte # 0.77 X10^3/ul (0.83-4.51); Lymphocyte % 14.2 % (19-41); Mean Corp Hgb Conc 34.2 g/dL (32-36); Mean Corpuscular Hgb 31.9 pg (27.0-32.0); Mean Corpuscular Volume 93.4 fL (81-99); Mean Platelet Vol. 10.2 fl (6.2-12.0); Monocyte# 0.48 X10^3/uL; Monocyte% 8.8 % (0-10); NRBC Flagged by Analyzer 0 % (0-5); Neutrophil # 4.05 X10^3/uL (2.7-7.7); Neutrophil % 74.4 % (47-70); Platelet Count 144 K/mm3 (150-450); RBC Distribution Width CV 12.9 % (11.6-14.6); Red Blood Count 3.48 M/mm3 (4.2-5.4); White Blood Count 5.4 K/mm3 (4.4-11.0)
[2021-12-24 11:16] LABS: Glucose Challenge Gest 1H 50g 132 mg/dL (70-140)
== END 2021-12-24 23:59 | disposition home or self-care (01) ==
LOC: PAVLAB 10:21
PROVIDERS: Obstetrics & Gynecology; Referring Provider Obstetrics & Gynecology; Visit Provider Obstetrics & Gynecology
DX: Z34.80 Encounter for supervision of other normal pregnancy, unspecified trimester (principal)
CPT/HCPCS: 36415; 82950; 85025

== ENCOUNTER 2022-01-21 11:15 | Outpatient (CLI) | payer MEDICAID, SELFPAY ==
[2022-01-21 11:25] LABS: Absolute Lymphocyte Count 1.02 X10^3/uL (0.83-4.51); Absolute Neutrophil Count 5.2 X10^3/uL (2.0-7.7); Basophil# 0.02 X10^3/uL; Basophil% 0.3 % (0-1); Eosinophil# 0.07 X10^3/uL; Hematocrit 35.5 % (37-47); Lymphocyte # 1.02 X10^3/ul (0.83-4.51); Lymphocyte % 14.2 % (19-41); Mean Corp Hgb Conc 33.8 g/dL (32-36); Mean Corpuscular Hgb 31.3 pg (27.0-32.0); Mean Corpuscular Volume 92.7 fL (81-99); Mean Platelet Vol. 9.7 fl (6.2-12.0); Monocyte# 0.77 X10^3/uL; Monocyte% 10.8 % (0-10); NRBC Flagged by Analyzer 0 % (0-5); Neutrophil # 5.19 X10^3/uL (2.7-7.7); Neutrophil % 72.4 % (47-70); Platelet Count 159 K/mm3 (150-450); RBC Distribution Width CV 12.9 % (11.6-14.6); RBC Distribution Width SD 43.5 fl (35.1-43.9); Red Blood Count 3.83 M/mm3 (4.2-5.4); White Blood Count 7.2 K/mm3 (4.4-11.0)
== END 2022-01-21 23:59 | disposition home or self-care (01) ==
LOC: PAVLAB 11:16
PROVIDERS: Referring Provider Obstetrics & Gynecology; Visit Provider Obstetrics & Gynecology
DX: O99.119 Other diseases of the blood and blood-forming organs and certain disorders involving the immune mechanism complicating pregnancy, unspecified trimester (principal); D69.6 Thrombocytopenia, unspecified; Z3A.00 Weeks of gestation of pregnancy not specified
CPT/HCPCS: 36415; 85025

== ENCOUNTER 2022-02-18 16:53 | Outpatient (CLI) | payer MEDICAID, SELFPAY | END 2022-02-18 23:59 | disposition home or self-care (01) | PROVIDERS: Visit Provider Obstetrics & Gynecology | DX: Z34.80 Encounter for supervision of other normal pregnancy, unspecified trimester (principal) | CPT/HCPCS: 87081 ==

== ENCOUNTER 2022-02-25 15:38 | Outpatient (CLI) | payer MEDICAID, SELFPAY ==
[2022-02-25 15:53] LABS: Absolute Lymphocyte Count 0.75 X10^3/uL (0.83-4.51); Absolute Neutrophil Count 4.1 X10^3/uL (2.0-7.7); Basophil# 0.01 X10^3/uL; Basophil% 0.2 % (0-1); Eosinophil# 0.08 X10^3/uL; Eosinophils% 1.4 % (0-5); Hematocrit 34.2 % (37-47); Hemoglobin 11.6 g/dL (12.0-15.0); Lymphocyte # 0.75 X10^3/ul (0.83-4.51); Lymphocyte % 13.5 % (19-41); Mean Corp Hgb Conc 33.9 g/dL (32-36); Mean Corpuscular Hgb 31.4 pg (27.0-32.0); Mean Corpuscular Volume 92.7 fL (81-99); Monocyte% 10.8 % (0-10); NRBC Flagged by Analyzer 0 % (0-5); Neutrophil # 4.07 X10^3/uL (2.7-7.7); Neutrophil % 73.4 % (47-70); Platelet Count 124 K/mm3 (150-450); RBC Distribution Width CV 12.9 % (11.6-14.6); RBC Distribution Width SD 43.8 fl (35.1-43.9); Red Blood Count 3.69 M/mm3 (4.2-5.4); White Blood Count 5.6 K/mm3 (4.4-11.0)
== END 2022-02-25 23:59 | disposition home or self-care (01) ==
LOC: LAB 15:39
PROVIDERS: Visit Provider Obstetrics & Gynecology
DX: O99.119 Other diseases of the blood and blood-forming organs and certain disorders involving the immune mechanism complicating pregnancy, unspecified trimester (principal); D69.6 Thrombocytopenia, unspecified; Z3A.00 Weeks of gestation of pregnancy not specified
CPT/HCPCS: 36415; 85025

== ENCOUNTER 2022-03-26 09:50 | Inpatient (IN) | payer MEDICAID, SELFPAY ==
[2022-03-26] VITALS (26 sets, daily range): BP systolic 112–141; BP diastolic 63–87; PULSE 64–82; TEMP 35.9–36.9; O2SAT 95–98; BMI 26.8
--- NOTE | 2022-03-26 10:06 | HP.PCM.OB_ITS ---
HPI - General General Date of Admission: 03/26/22 HPI Narrative JOANNA DANIELS, is a 36 F who presents for IOL postdates no vb lof admits good fm no regular ctx Maternal Data Information REBECCA Calculator Estimated Delivery Date Method Current WG Current Estimate 03/18/22 LMP (Certain) 41w 1d PFSH PFS Medical History (Updated 03/26/22 @ 10:[address] Lindsey Berry MD) Missed Home Medications ferrous sulfate 324 mg (65 mg iron) tablet,delayed release 324 mg PO QDAY tab 10/31/17 [History Last Taken 03/05/18] prenat.vits,miriam,[id number]-[id number]-[id number] 1 tab PO QDAY 10/31/17 [History Last Taken 03/06/18] Allergy/AdvReac Type Severity Reaction Status Date / Time No Known Allergies Allergy Verified 03/18/22 10:59 Surgical History H/O dilation and curettage Social History Smoking Status: Never smoker alcohol intake: never substance use type: does not use caffeine: No what type of physical activity do you participate in: none seatbelt use: always do you feel safe at home: Yes additional social history: Hieu History 5 Elective abortions Hx Para 3 Spontaneous abortions 1 Hx # Term Pregnancies Ectopic pregnancies Hx # Pregnancies Multiple births # of living children 3 Past Pregnancies Del. Date Name GA/Weeks Outcome Route Bth Weight Infant Gen Labor Lgth Anesthesia Del Locatn Provider FOB 07/10/12 Noel 42 live - full term 9 lbs 14 ounces Male [place] 06/04/15 Bhargav 40 live - full term 8lbs 8oz Male [facility] 03/06/18 Pacheco 41 live - full term 9 lb 8 oz Male ot her [facility] Visit Details Expected Delivery Route/Plan Labor Preferences- CB/BF classes: [] labor support person: [] labor intervention preferences: [] pain management options preferred: [] cut cord/dad catch: [] : [] PP control planned: [] discussed possible routes of delivery and associated risks: [] special requests: [] Plans Covid status: prior to . counseled regarding risk of covid in vs vaccination and declined vaccination Flu vaccine: declined Tdap vaccine: declined Rhogam: [] LARC form signed: [] movement and labor precautions reviewed. Problem list reviewed and updated with the most current plan of care details and appropriate orders placed. Relevant counseling for the gestational age provided. Continue routine care and follow up unless otherwise noted in visit notes/problem list details OB Flowsheet Initial Weight: 148 lb Date -?-?-?-?-?-?-?-?-?-?-?-?- EGA Weight BP Urine Prot -?-?-?-?-?-?-?-?-?-?-?-?- Glucose FHR FuHt Pres Dilation -?-?-?-?-?-?-?-?-?-?-?-?- Effaced St Visit Note 08/19/21 -?-?-?-?-?-?-?-?-?-?-?-?- 9w 6d 148 lb (+0 oz) 100/80 -?-?-?-?-?-?-?-?-?-?-?-?- 170 -?-?-?-?-?-?-?-?-?-?-?-?- SM- CRL 2.9 cm c ons with LMP 09/13/21 -?-?-?-?-?-?-?-?-?-?-?-?- 13w 3d 153 lb (+5 lb) 122/80 Negative -?-?-?-?-?-?-?-?-?-?-?-?- Negative 150 -?-?-?-?-?-?-?-?-?-?-?-?- SM- no vb lof cr amping 10/15/21 -?-?-?-?-?-?-?-?-?-?-?-?- 18w 0d 155 lb 2 oz (+7 lb 2 oz) 112/64 Negative -?-?-?-?-?-?-?-?-?-?-?-?- Negative -?-?-?-?-?-?-?-?-?-?-?-?- SM- no vb lof go od fm no regular ctx 11/08/21 -?-?-?-?-?-?-?-?-?-?-?-?- 21w 3d 161 lb (+13 lb) 120/60 Negative -?-?-?-?-?-?-?-?-?-?-?-?- Negative 145 -?-?-?-?-?-?-?-?-?-?-?-?- Sm- no vb lof go od fm nor egular ctx 12/10/21 -?-?-?-?-?-?-?-?-?-?-?-?- 26w 0d 165 lb (+17 lb) 124/82 Negative -?-?-?-?-?-?-?-?-?-?-?-?- Negative 145 -?-?-?-?-?-?-?-?-?-?-?-?- SM- no vb lof go od fm nor egular ctx 12/24/21 -?-?--?-?-?-?-?-?-?-?-?-?- 28w 0d 169 lb (+21 lb) 118/72 Negative -?-?-?-?-?-?-?-?-?-?-?-?- Negative 147 -?-?-?-?-?-?-?-?-?-?-?-?- JV- no lof vag b leeding or dec fm. mildly low plts. rpt monthly. gct normal. 01/07/22 -?-?-?-?-?-?-?-?-?-?-?-?- 30w 0d 168 lb (+20 lb) 100/60 Negative -?-?-?-?-?-?-?-?-?-?-?-?- Negative 140 -?-?-?-?-?-?-?-?-?-?-?-?- Sm- no vb lof go od fm no rgular ctx 01/21/22 -?-?-?-?-?-?-?-?-?-?--?-?- 32w 0d 172 lb (+24 lb) 130/80 Negative -?-?-?-?-?-?-?-?-?-?-?-?- Negative 145 34 -?-?-?-?-?-?-?-?-?-?-?-?- JV- plan to repe at plts today. pt is not planning on epidural. no loss of fluid, vaginal bleeding, or dec fm. 02/18/22 -?-?-?-?-?-?-?-?-?-?-?-?- 36w 0d 176 lb 2 oz (+28 lb 2 oz) 122/82 Negative -?-?-?-?-?-?-?-?-?-?-?-?- Negative 135 36 1 -?-?-?-?-?-?-?-?-?-?-?-?- 30 -3 JV- no lof , vaginal bleeding, or dec fm. Gbs today. rpt plts next visit. 02/25/22 -?-?-?-?-?-?-?-?-?-?-?-?- 37w 0d 178 lb (+30 lb) 130/80 Negative -?-?-?-?-?-?-?-?-?-?-?--?- Negative 130 37 -?-?-?-?-?-?-?-?-?-?-?-?- SM- no vb lof go od fm no reuglar ctx 03/03/22 -?-?-?-?-?-?-?-?-?-?-?-?- 37w 6d 181 lb (+33 lb) 130/82 Negative -?-?-?-?-?-?-?-?-?-?-?-?- Negative 140 38 1 -?-?-?-?-?-?-?-?-?-?-?-?- 30 -3 SM- no vb lof good fm no regular ctx 03/11/22 -?-?-?-?-?-?-?-?-?-?-?-?- 39w 0d 182 lb (+34 lb) 112/70 Negative -?-?-?-?-?-?-?-?-?-?-?-?- Negative 140 39 1 -?-?-?-?-?-?-?-?-?-?-?-?- 30 -2 SM- no vb lof good fm no regular ctx 03/18/22 -?-?-?-?-?-?-?-?-?-?-?-?- 40w 0d 183 lb (+35 lb) 128/82 Negative -?-?-?-?-?-?-?-?-?-?-?-?- Negative 143 38 2 -?-?-?-?-?-?-?-?-?-?-?-?- 50 -2 JV- IOL se t up for next monday per patient request. no lof, vaginal bleeding, or dec fm. 03/26/22 -?-?-?-?-?-?-?-?-?-?-?-?- 41w 1d 134/76 -?-?-?-?-?-?-?-?-?-?-?-?- -?-?-?-?-?-?-?-?-?-?-?-?- NST FHR Rate Baby A Baseline: 130 Variability:: Moderate Accelerations:: 15 x 15 Decelerations:: None NST Reactive:: Yes FHR Category:: Category I Uterine Activity:: irregular ROS Constitutional Constitutional: Reports systems reviewed and no addt'l complaints, except as documented Eyes Eyes: Denies change in vision ENT HEENT: Reports systems reviewed and no addt'l complaints, except as documented; Denies headache(s) Cardiovascular Cardiovascular: Reports systems reviewed and no addt'l complaints, except as documented; Denies chest pain or dyspnea Respiratory/Chest Respiratory/Chest: Reports systems reviewed and no addt'l complaints, except as documented Gastrointestinal Gastrointestinal: Reports systems reviewed and no addt'l complaints, except as documented; Denies abdominal pain Genitourinary Genitourinary: Reports systems reviewed and no addt'l complaints, except as documented, contractions Details: present (irregular) and movement Details: present; Denies dysuria or genital lesions Musculoskeletal Musculoskeletal: Reports systems reviewed and no addt'l complaints, except as documented Neurologic Neurologic: Reports systems reviewed and no addt'l complaints, except as documented Endocrine Endocrinology: Reports systems reviewed and no addt'l complaints, except as documented Vital Signs Vital Signs Vital Signs: 03/26/22 09:56 03/26/22 09:58 Pulse Rate 82 79 Blood Pressure 134/76 H BP Systolic 134 BP Diastolic 76 Pulse Ox 97 Physical Exam Const alert, oriented x3, no apparent distress and healthy appearing HEENT normocephalic and moist oral mucous membranes Head and Scalp: atraumatic Neck full ROM, no lymphadenopathy, supple and thyroid normal General: trachea midline Lymph Lymphatic: no lymphadenopathy noted Chest inspection of chest normal Resp normal respiratory effort Cardio regular rate GI normal to inspection, nondistended, normoactive bowel sounds, soft to palpation and non-tender Inspection: gravid external exam normal Manual OB Exam: estimated gestational size appropriate, presentation cephalic, dilated 3, effaced 60 and station -2 Extremity normal to inspection General Extremity: Negative for edema Skin no rashes or lesions noted Neuro no focal motor deficits and deep tendon reflexes 2+ bilaterally Motor Exam: strength 5/5 throughout and clonus absent Psych mental status grossly normal Labs Labs Labs: Blood Type O POSITIVE Antibody Screen NEGATIVE Hct 34.2 % (37-47) L Hgb 11.6 g/dL (12.0-15.0) L Obstetrics US Syphilis Total Ab Non-reactive Rubella IgG Antibody Reactive (Nonreactive) Hep Bs Antigen Non-Reactive (Nonreactive) Chlamydia DNA ([facility]) Negative (Negative) Neisseria gonorrhoeae DNA ([facility]) Negative (Negative) HIV 1&2 Antibody Non-Reactive (Nonreactive) Glucose 1 Hr 50 gm 132 mg/dL (70-140) Group B Strep DNA Negative (Negative) Rhogam given: No Assessment & Plan (1) Supervision of other normal : COMMENT: PRR REBECCA: 03/18/22, boy, PC: Bhagrav Cohen Levi Spouse: Hieu (2) 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 (3) Gestational thrombocytopenia: COMMENT: stable (4) : QUALIFIERS: Weeks of gestation: 40 weeks Qualified Code(s): Z3A.40 - 40 weeks gestation of COMMENT: nl anatomy, declines genetic, carrier and NTD. GBS negative. (5) Encounter for induction of labor: COMMENT: IOL postdates Pitocin PLAN: Patient presents IOL, plan management for with pitocin/AROM. Pain management: minimal intervention planned. GBS negative. Management of any complications: none I have reviewed the [facility] and made any clinically relevant updates.
[2022-03-26] MEDS: Lactated Ringers 1,000 ML 50 ML IV (10:30)
[2022-03-26 11:06] LABS: Absolute Lymphocyte Count 0.73 X10^3/uL (0.83-4.51); Absolute Neutrophil Count 2.7 X10^3/uL (2.0-7.7); Basophil# 0.01 X10^3/uL; Basophil% 0.2 % (0-1); Eosinophils% 2.4 % (0-5); Hematocrit 33.2 % (37-47); Lymphocyte # 0.73 X10^3/ul (0.83-4.51); Lymphocyte % 17.3 % (19-41); Mean Corp Hgb Conc 33.1 g/dL (32-36); Mean Corpuscular Hgb 31.1 pg (27.0-32.0); Mean Corpuscular Volume 93.8 fL (81-99); Mean Platelet Vol. 11.7 fl (6.2-12.0); Monocyte# 0.63 X10^3/uL; Monocyte% 14.9 % (0-10); NRBC Flagged by Analyzer 0 % (0-5); Neutrophil # 2.74 X10^3/uL (2.7-7.7); Neutrophil % 64.7 % (47-70); Platelet Count 107 K/mm3 (150-450); RBC Distribution Width CV 12.8 % (11.6-14.6); RBC Distribution Width SD 44.1 fl (35.1-43.9); Red Blood Count 3.54 M/mm3 (4.2-5.4); White Blood Count 4.2 K/mm3 (4.4-11.0)
[2022-03-26] MEDS: Oxytocin 30 units/NS 500 ml 30 UNITS/500 ML IV.SOLN IV (11:36)
[2022-03-26] MEDS: Oxytocin 30 units/NS 500 ml 30 UNITS/500 ML IV.SOLN 334 UNITS IV (20:04)
--- NOTE | 2022-03-26 20:17 | OP.PCM_ITS ---
Assessment & Plan (1) : QUALIFIERS: Weeks of gestation: 40 weeks Qualified Code(s): Z3A.40 - 40 weeks gestation of COMMENT: nl anatomy, declines genetic, carrier and NTD. GBS negative. 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 (5) Encounter for induction of labor: COMMENT: IOL postdates Pitocin (6) Vaginal delivery: COMMENT: IOL 41 SM boy Roberto Maternal Data Information REBECCA Calculator Estimated Delivery Date Method Current WG Current Estimate 03/18/22 LMP (Certain) 41w 2d Vaginal Delivery Operative Information Date of Procedure: 03/26/22 Pre-Operative Diagnosis: IOL postdates Post-Operative Diagnosis: same Surgery / Procedure Performed: Spontaneous Vaginal Delivery Type of Anesthesia: Local with 1% Lidocaine Special Medications: none Estimated Blood Loss: 200 Fluids Replaced: crystalloid Findings Description of Procedure: Patient began pushing and delivered the head in the LINDA presentation. The head was delivered atraumatically . The anterior and posterior shoulders delivered without complication followed by the rest of the and the was placed on the maternal abdomen. Delayed cord clamping was employed for approximately 60 seconds. Cord was clamped and cut and gentle traction was applied to the cord and the placenta delivered spontaneously immediately following it was noted to be intact with three-vessel cord. The perineum and vagina were inspected and noted to have a first degree perineal laceration repaired in the usual fashion wit 3-0 rapide. EBL was 200. Patient and tolerated delivery well. Presentation: LINDA Amniotic Membrane Rupture Type: Artificial Amniotic Fluid Description: Clear Placental Delivery Description: Spontaneous Placenta Disposition: [facility] Cord Vessel Description: 3 Vessels Cord Entanglement: True Knot(s) Delayed Cord Clamping: Yes Post Vaginal Delivery Medications Given After Delivery: IV Pitocin Episiotomy Description: None Laceration: Perineal Extension/lac and 1st degree Complication Complications: None Procedures Urinary/Genital [id number]: [id number] Vaginal Delivery+PP Care([facility])
[2022-03-27 00:04] VITALS: BP 111/54; PULSE 81; RESP 15; TEMP 36.3
[2022-03-27 04:22] VITALS: BP 107/69; PULSE 71; RESP 16; TEMP 36.6
[2022-03-27 08:45] VITALS: BP 112/73; PULSE 75; RESP 16; TEMP 36.6; O2SAT 96
--- NOTE | 2022-03-27 13:16 | PCM.DC ---
Discharge Instructions Diet Discharge Diet: No restrictions Activity Discharge Activity: Return to Normal Activity, May Not Drive (while taking narcotic pain medications.) and May Shower May resume sexual activity in: 4-6 weeks Dressing / Incision Call your doctor if your incision/area has: Continuous Slow Oozing, Sudden Increased Bleeding, Increased Pain/ Swelling, Increased Redness and Foul Smelling Discharge Follow Up Care Please Follow Up With: Lindsey Berry MD When: Call [phone] to make an appointment with your doctor in 6 weeks. If you had elevated blood pressure or 4th degree laceration, you will need to be seen in 2 weeks. Test Results: Test results from this visit will be discussed in further detail at your follow-up appointment, if applicable. Discharge Plan Admission Admit Date/Time: 03/26/22 09:50 Attending Provider: Lindsey Berry Primary Care Provider: Care Physician,Anitra Primary Discharge Orders/Prescriptions Prescriptions: No Action prenat.vits,miriam,dnv-hyif-hjsha [ Vitamin] tablet 1 tab PO QDAY RF: 0 ferrous sulfate 324 mg (65 mg iron) tablet,delayed release (DR/EC) 324 mg PO QDAY RF: 0 Referrals / Follow Up: Care Physician,No Primary [Primary Care Provider] - Disposition Disposition (needs filled in before D/C Order can be placed): Home, Self Care
--- NOTE | 2022-03-27 13:17 | PCM.PN.OB ---
Subjective Subjective Patient doing well without complaints. Tolerating PO. Ambulating and voiding without difficulty. feeding well. Denies chest pain, shortness of breath, calf pain/swelling, fevers, chills, lightheadedness. Objective Data Objective Data Vital Signs: Vital Signs Temp Pulse Resp BP Pulse Ox 97.9 F 75 16 112/73 96 03/27/22 08:45 03/27/22 08:45 03/27/22 08:45 03/27/22 08:45 03/27/22 08:45 Oxygen Delivery Method Room Air Weight: 181 lb 6.4 oz Body Mass Index (BMI) 26.8 Intake & Output: Intake and Output for Last 24 Hours 03/25/22 03/26/22 03/27/22 23:59 23:59 23:59 Intake Total 1270.04 / 1270.04 Output Total 400 / 400 Balance 870.04 / 870.04 Lab / Micro Data Result Diagrams: 03/26/22 10:30 Micro: Microbiology 03/26/22 10:20 Nasal Secretion SARS-CoV-2 Antigen (Rapid) - Final ROS Constitutional Constitutional: Reports systems reviewed and no addt'l complaints, except as documented Cardiovascular Cardiovascular: Reports systems reviewed and no addt'l complaints, except as documented Respiratory/Chest Respiratory/Chest: Reports systems reviewed and no addt'l complaints, except as documented Gastrointestinal Gastrointestinal: Reports systems reviewed and no addt'l complaints, except as documented Physical Exam Const alert, oriented x3 and no apparent distress HEENT Head and Scalp: atraumatic Resp normal respiratory effort GI soft to palpation and non-tender Bimanual Exam - Vag & Uterus: uterus non-tender Uterus Palpation: uterus fundus firm (below Umbilicus) Assessment & Plan (1) Vaginal delivery: COMMENT: IOL 41 SM boy Roberto PLAN: s/p PPD # 1 1. routine post delivery care 2. breast feeding- support given 3. rh positive 4. rubella immune
[2022-03-27 13:30] VITALS: BP 125/76; PULSE 74; RESP 16; TEMP 36.4; O2SAT 96
[2022-03-27 17:00] VITALS: BP 121/66; PULSE 74; RESP 16; TEMP 36.7; O2SAT 96
[2022-03-27 21:00] VITALS: BP 128/57; PULSE 78; RESP 16; TEMP 36.4; O2SAT 97
[2022-03-28 01:43] VITALS: BP 116/78; PULSE 70; RESP 16; TEMP 36.7; O2SAT 97
--- NOTE | 2022-03-28 07:46 | PCM.PN.OB ---
Subjective Subjective Patient doing well without complaints. Tolerating PO. Ambulating and voiding without difficulty. Feeding well. Denies chest pain, shortness of breath, calf pain/swelling, fevers, chills, lightheadedness. Objective Data Objective Data Vital Signs: Vital Signs Temp Pulse Resp BP Pulse Ox 98.1 F 70 16 116/78 97 03/28/22 01:43 03/28/22 01:43 03/28/22 01:43 03/28/22 01:43 03/28/22 01:43 Oxygen Delivery Method Room Air Weight: 181 lb 6.4 oz Body Mass Index (BMI) 26.8 Intake & Output: Intake and Output for Last 24 Hours 03/26/22 03/27/22 03/28/22 23:59 23:59 23:59 Intake Total 1270.04 / 1270.04 Output Total 400 / 400 Balance 870.04 / 870.04 Lab / Micro Data Result Diagrams: 03/26/22 10:30 Micro: Microbiology 03/26/22 10:20 Nasal Secretion SARS-CoV-2 Antigen (Rapid) - Final Physical Exam Const alert and oriented x3 HEENT normocephalic Eyes PERRL Neck full ROM Resp normal respiratory effort GI soft to palpation GI Narrative: FF below U Assessment & Plan (1) Vaginal delivery: COMMENT: IOL 41 SM boy Roberto PLAN: s/p PPD # 2 1. routine post delivery care 2. breast feeding- support given 3. rh positive 4. rubella immune 5. home today
[2022-03-28 09:18] VITALS: BP 115/65; PULSE 89; RESP 16; TEMP 36.8; O2SAT 98
== END 2022-03-28 11:20 | disposition home or self-care (01) | DRG 560 ==
PROVIDERS: Admitting Provider Obstetrics & Gynecology; Referring Provider Obstetrics & Gynecology; Visit Provider Obstetrics & Gynecology
DX: O48.0 Post-term pregnancy (principal); Z37.0 Single live birth; O70.0 First degree perineal laceration during delivery; Z3A.41 41 weeks gestation of pregnancy
CPT/HCPCS: 59025; 59050; 85025; 86850; 86900; 86901; 87426; 99218; J7120; G0378

== ENCOUNTER → 2024-07-24 | Outpatient (CLI) | payer MEDICAID, SELFPAY ==
[2024-07-24 14:56] LABS: Absolute Lymphocyte Count 0.86 X10^3/uL (0.83-4.51); Absolute Neutrophil Count 3.9 X10^3/uL (2.0-7.7); Basophil# 0.01 X10^3/uL; Basophil% 0.2 % (0-1); Eosinophil# 0.04 X10^3/uL; Eosinophils% 0.7 % (0-5); Hematocrit 37.7 % (37-47); Lymphocyte # 0.86 X10^3/ul (0.83-4.51); Lymphocyte % 15.9 % (19-41); Mean Corp Hgb Conc 31.8 g/dL (32-36); Mean Corpuscular Hgb 29.3 pg (27.0-32.0); Mean Platelet Vol. 11.1 fl (6.2-12.0); Monocyte# 0.57 X10^3/uL; Monocyte% 10.6 % (0-10); NRBC Flagged by Analyzer 0 % (0-5); Neutrophil % 72.2 % (47-70); Platelet Count 171 K/mm3 (150-450); RBC Distribution Width CV 12.3 % (11.6-14.6); White Blood Count 5.4 K/mm3 (4.4-11.0)
[2024-07-24 16:00] LABS: HIV - WCH Non-Reactive (Nonreactive); Hepatitis B Surface Antigen Non-Reactive (Nonreactive); Hepatitis C Antibody Non-Reactive (Nonreactive); Rubella IgG Reactive (Nonreactive); Syphilis Antibodies Non-reactive
[2024-07-27 07:12] LABS: Chlamydia By Nucleic Acid AMP Negative (Negative); Gonococcus By Nucleic Acid AMP Negative (Negative)
[2024-07-29 15:07] LABS: HPV APTIMA, High Risk Negative (Negative)
== END | disposition home or self-care (01) ==
PROVIDERS: Referring Provider Obstetrics & Gynecology; Visit Provider Obstetrics & Gynecology
DX: O09.90 Supervision of high risk pregnancy, unspecified, unspecified trimester (principal); Z3A.00 Weeks of gestation of pregnancy not specified; Z12.4 Encounter for screening for malignant neoplasm of cervix
CPT/HCPCS: 36415; 85025; 86703; 86762; 86780; 86803; 86850; 86900; 86901; 87086; 87340; 87491; 87591; 87624; 88175; G0145

== ENCOUNTER → 2024-12-12 | Outpatient (CLI) | payer MEDICAID, SELFPAY ==
[2024-12-12 16:21] LABS: Glucose Challenge Gest 1H 50g 154 mg/dL (70-140)
== END | disposition home or self-care (01) ==
LOC: LAB 15:20
PROVIDERS: Referring Provider Obstetrics & Gynecology; Visit Provider Obstetrics & Gynecology
DX: Z13.1 Encounter for screening for diabetes mellitus (principal)
CPT/HCPCS: 36415; 82950

== ENCOUNTER → 2024-12-20 | Outpatient (CLI) | payer MEDICAID, SELFPAY ==
[2024-12-20 08:08] LABS: Glucose GTT-Gestation. Fasting 79 mg/dL (<105)
[2024-12-20 08:57] LABS: Absolute Lymphocyte Count 0.85 X10^3/uL (0.83-4.51); Absolute Neutrophil Count 4.1 X10^3/uL (2.0-7.7); Basophil# 0.02 X10^3/uL; Basophil% 0.4 % (0-1); Eosinophil# 0.05 X10^3/uL; Eosinophils% 0.9 % (0-5); Hematocrit 36.8 % (37-47); Hemoglobin 12.3 g/dL (12.0-15.0); Lymphocyte # 0.85 X10^3/ul (0.83-4.51); Lymphocyte % 15.5 % (19-41); Mean Corp Hgb Conc 33.4 g/dL (32-36); Mean Corpuscular Volume 92.7 fL (81-99); Mean Platelet Vol. 10.8 fl (6.2-12.0); Monocyte% 7.3 % (0-10); NRBC Flagged by Analyzer 0 % (0-5); Neutrophil # 4.12 X10^3/uL (2.7-7.7); Neutrophil % 75.4 % (47-70); Platelet Count 153 K/mm3 (150-450); RBC Distribution Width CV 12.5 % (11.6-14.6); RBC Distribution Width SD 42.5 fl (35.1-43.9); Red Blood Count 3.97 M/mm3 (4.2-5.4); White Blood Count 5.5 K/mm3 (4.4-11.0)
[2024-12-20 09:27] LABS: Glucose GTT-Gestational 1 Hr 175 mg/dL (<190)
[2024-12-20 09:43] LABS: Glucose GTT-Gestational 2 Hr 159 mg/dL (<165)
[2024-12-20 10:00] LABS: HIV - WCH Non-Reactive (Nonreactive); Syphilis Antibodies Non-reactive
[2024-12-20 11:01] LABS: Glucose GTT-Gestational 3 Hr 52 L (<145)
== END | disposition home or self-care (01) ==
LOC: LAB 06:51
PROVIDERS: Referring Provider Obstetrics & Gynecology; Visit Provider Obstetrics & Gynecology
DX: O99.810 Abnormal glucose complicating pregnancy (principal); Z3A.00 Weeks of gestation of pregnancy not specified; O09.92 Supervision of high risk pregnancy, unspecified, second trimester
CPT/HCPCS: 36415; 82951; 82952; 85025; 86703; 86780

== ENCOUNTER → 2025-02-06 | Outpatient (CLI) | payer MEDICAID, SELFPAY | END | disposition home or self-care (01) | LOC: LABSPEC 16:20 | PROVIDERS: Referring Provider Nurse Practitioner Women's Health; Visit Provider Nurse Practitioner Women's Health | DX: O09.90 Supervision of high risk pregnancy, unspecified, unspecified trimester (principal); Z3A.00 Weeks of gestation of pregnancy not specified | CPT/HCPCS: 87081 ==

== ENCOUNTER → 2025-02-13 | Outpatient (CLI) | payer MEDICAID, SELFPAY ==
--- NOTE | 2025-02-13 13:02 | US_ITS ---
PROCEDURE: OB LIMITED WITH BIOMETRICS 02/13/2025 REASON FOR EXAM: GROWTH TECHNIQUE: High resolution obstetric ultrasound performed using a 2D transducer. Standard views obtained, including biometry, anatomy survey, and Doppler studies. COMPARISON: None FINDINGS Number: 1 Position: Vertex Placental Position: Anterior and not low-lying. Placental Abnormalities: No evidence of previa or accreta. DIMENSIONS: Biparietal Diameter: 9.46 cm: 38 weeks and 4 days: 92nd percentile/ Head Circumference: 33.93 cm: 39 weeks and 0 days: 70 percentile/ Abdominal Circumference: 35.17 cm: 39 weeks and 1 day: 97 percentile/ Femur Length: 7.55 cm: 38 weeks and 4 days: 83rd percentile/ ESTIMATED WEIGHT: 3659 g plus/-549 g ESTIMATED WEIGHT PERCENTILE (24+ weeks): 93 ESTIMATED GESTATIONAL AGE: Baseline: 37 weeks and 1 day By Ultrasound: 38 weeks and 4 days ESTIMATED DATE OF DELIVERY: Baseline: March 05, 2025 By Ultrasound: February 23, 2025 BIOPHYSICAL ASSESSMENT: Amniotic Fluid Volume: Amniotic Fluid Index: (8-24 cm normal range) Cardiac Motion: (average) Trunk and Limb Motion: Present. MATERNAL ANATOMY: Adnexa: Neither maternal ovary is successfully identified. Cervical Length (if measured): There is evidence of echogenic bowel as well as increased echotexture within the stomach and amniotic fluid. US/OB Limited With Biometrics IMPRESSION: Single live intrauterine gestation with a mean gestational age of 38 weeks and 4 days. Reading Location: [place] [id number]
== END | disposition home or self-care (01) ==
PROVIDERS: Referring Provider Nurse Practitioner Women's Health; Visit Provider Nurse Practitioner Women's Health
DX: O09.529 Supervision of elderly multigravida, unspecified trimester (principal); Z3A.00 Weeks of gestation of pregnancy not specified
CPT/HCPCS: 76816

== ENCOUNTER → 2025-02-18 | Outpatient (CLI) | payer MEDICAID, SELFPAY | END | disposition home or self-care (01) | LOC: LAB 12:50 | PROVIDERS: Referring Provider Obstetrics & Gynecology; Visit Provider Obstetrics & Gynecology | DX: O28.3 Abnormal ultrasonic finding on antenatal screening of mother (principal) | CPT/HCPCS: 36415; 81220; 86644; 86645; 86777; 86778; 87496 ==

== ENCOUNTER 2025-02-26 07:05 | Inpatient (IN) | payer MEDICAID, SELFPAY ==
[2025-02-26] VITALS (18 sets, daily range): BP systolic 120–139; BP diastolic 60–91; PULSE 64–102; RESP 16–17; TEMP 36.4–37.1; O2SAT 92–98; BMI 26.9
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
[2025-02-26] MEDS: Lactated Ringers 1,000 ML 50 ML IV (07:35)
[2025-02-26 07:55] LABS: Absolute Lymphocyte Count 0.69 X10^3/uL (0.83-4.51); Absolute Neutrophil Count 4.4 X10^3/uL (2.0-7.7); Basophil# 0.02 X10^3/uL; Basophil% 0.4 % (0-1); Eosinophil# 0.04 X10^3/uL; Eosinophils% 0.7 % (0-5); Hematocrit 33.6 % (37-47); Hemoglobin 11.6 g/dL (12.0-15.0); Lymphocyte # 0.69 X10^3/ul (0.83-4.51); Lymphocyte % 12.3 % (19-41); Mean Corp Hgb Conc 34.5 g/dL (32-36); Mean Corpuscular Hgb 31.3 pg (27.0-32.0); Mean Corpuscular Volume 90.6 fL (81-99); Mean Platelet Vol. 10.5 fl (6.2-12.0); Monocyte# 0.48 X10^3/uL; Monocyte% 8.5 % (0-10); NRBC Flagged by Analyzer 0 % (0-5); Neutrophil # 4.35 X10^3/uL (2.7-7.7); Neutrophil % 77.4 % (47-70); Platelet Count 138 K/mm3 (150-450); RBC Distribution Width CV 13.1 % (11.6-14.6); RBC Distribution Width SD 42.7 fl (35.1-43.9); Red Blood Count 3.71 M/mm3 (4.2-5.4); White Blood Count 5.6 K/mm3 (4.4-11.0)
[2025-02-26] MEDS: Oxytocin 15 Units/NS 250ml 15 UNITS/250 ML IV.SOLN 2 UNITS IV (08:05)
[2025-02-26 08:58] LABS: Syphilis Antibodies Nonreactive (Nonreactive)
[2025-02-26] MEDS: Ondansetron 4 MG/2 ML Vial IV (20:59)
[2025-02-27] VITALS (34 sets, daily range): BP systolic 96–116; BP diastolic 54–77; PULSE 56–78; RESP 15–16; TEMP 36.5–37; O2SAT 92–100
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
--- NOTE | 2025-02-27 01:12 | DCINST_ITS ---
Discharge Instructions Diet Discharge Diet: No restrictions DC O2, CPAP, BIPAP needs Home O2 Discharge instructions: No Dressing / Incision Discharge Activity: Return to Normal Activity, May Not Drive (while taking narcotic pain medications.) and May Shower May resume sexual activity in: 4-6 weeks Dressing / Incision Call your doctor if your incision/area has: Continuous Slow Oozing, Sudden Increased Bleeding, Increased Pain/ Swelling, Increased Redness and Foul Smelling Discharge Follow Up Care Please Follow Up With: Lindsey Berry MD When: Call [phone] to make an appointment with your doctor in 6 weeks. If you had elevated blood pressure or 4th degree laceration, you will need to be seen in 2 weeks. Test Results: Test results from this visit will be discussed in further detail at your follow- up appointment, if applicable. Discharge Plan Admission Admit Date/Time: 02/26/25 07:05 Attending Provider: Lindsey Berry Primary Care Provider: Care Physician,No Primary Discharge Orders/Prescriptions Prescriptions: No Action zinc glycinate 20 mg capsule 20 mg PO DAILY PNV-[place] 28-1-300 mg capsule 1 cap PO DAILY ferrous sulfate 27 mg iron tablet 27 mg PO DAILY Referrals / Follow Up: Care Physician,No Primary [Primary Care Provider] - Disposition Disposition (needs filled in before D/C Order can be placed): Home, Self Care
[2025-02-27] MEDS: Oxytocin 15 Units/NS 250ml 15 UNITS/250 ML IV.SOLN 83 UNITS IV (01:15)
[2025-02-27] MEDS: Ketorolac 30 MG/ML Syringe IV (04:23)
[2025-02-28 01:31] VITALS: BP 103/54; PULSE 62; RESP 15; TEMP 36.8; O2SAT 97
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
[2025-02-28 09:30] VITALS: BP 129/84; PULSE 85; RESP 14; TEMP 36.6; O2SAT 97
[2025-02-28 11:16] VITALS: RESP 16
== END 2025-02-28 11:50 | disposition home or self-care (01) | DRG 560 ==
PROVIDERS: Admitting Provider Obstetrics & Gynecology; Referring Provider Obstetrics & Gynecology; Visit Provider Obstetrics & Gynecology
DX: O36.63X0 Maternal care for excessive fetal growth, third trimester, not applicable or unspecified (principal); Z37.0 Single live birth; Z3A.39 39 weeks gestation of pregnancy
CPT/HCPCS: 59025; 59050; 76815; 85025; 86780; 86850; 86900; 86901; 99221; G0378; J2405